=== PATIENT | male | born 1960 | race Two or more races ===

== ENCOUNTER 2024-08-24 19:52 | Inpatient (IN) | payer MEDICARE, OTHER ==
[~2024-08-24] VITALS: Ht 182.9 cm; Wt 101.6 kg
[~2024-08-24 19:52] MED LIST: ATEN50TA PO; ATOR20TA PO; BENA40TA67 PO; CHOL200026 PO; DIVA500T2 PO; FENO145T21 PO; GABA-534 PO; GLYB1TAB3 PO; INSU3INS6 SUBCUT; LORA1TAB PO; SILD100T PO; SITA100T PO; TAMS-12 PO; TRIA1TAB5 PO
[2024-08-24 20:55] LABS: BASOPHILS # (AUTO) 0.1 K/uL (0.0-0.2); BASOPHILS % (AUTO) 1.2 % (0.0-2.0); EOSINOPHILS # (AUTO) 0.1 K/uL (0.0-0.7); EOSINOPHILS % (AUTO) 1.3 % (0.0-6.0); HEMATOCRIT 32 % (39-51); HEMOGLOBIN 9.9 g/dL (13.5-17.5); LYMPHOCYTES # (AUTO) 2.3 K/uL (0.8-4.8); LYMPHOCYTES % (AUTO) 27.6 % (20.0-44.0); MEAN CORPUSCULAR HEMOGLOBIN 23 PG (26.0-33.0); MEAN CORPUSCULAR HGB CONC 31 g/dl (31.0-36.0); MEAN CORPUSCULAR VOLUME 75 fL (80-96); MONOCYTES # (AUTO) 0.8 K/uL (0.1-1.30); MONOCYTES % (AUTO) 9.8 % (2.0-12.0); NEUTROPHILS # (AUTO) 4.9 K/uL (1.8-8.9); NEUTROPHILS % (AUTO) 60.1 % (43.0-81.0); PLATELET COUNT (AUTO) 241 K/uL (150-450); RED BLOOD CELL COUNT(AUTO) 4.27 MIL/uL (4.5-6.0); RED CELL DISTRIBUTION WIDTH 24.2 % (11.5-15.0); WHITE BLOOD COUNT (AUTO) 8.2 K/uL (4.3-11.0)
[2024-08-24 21:14] LABS: LACTIC ACID 0.9 mmol/L (0.4-2.0)
[2024-08-24 21:15] LABS: BILIRUBIN,DIRECT 0.1 mg/dL (0.0-0.2); BILIRUBIN,TOTAL 0.2 mg/dL (0.2-1.0); CALCIUM, SERUM 8.2 mg/dL (8.5-10.1); CREATININE 1.5 mg/dL (0.6-1.3); POTASSIUM 4.4 mmol/L (3.5-5.1); TOTAL PROTEIN, SERUM 6.7 g/dL (6.4-8.2)
[2024-08-24 21:17] LABS: ALBUMIN 1.1 g/dL (3.4-5.0)
[2024-08-24 22:21] LABS: APPEARANCE,URINE CLEAR (CLEAR); BILIRUBIN,URINE 1+ (NEGATIVE); BLOOD, URINE 3+ Ery/uL (NEGATIVE); COLOR,URINE YELLOW (YELLOW); KETONES,URINE NEGATIVE (NEGATIVE); LEUKOCYTE ESTERASE ,URINE NEGATIVE (NEGATIVE); NITRITE, URINE NEGATIVE (NEGATIVE); PROTEIN,URINE 2+ mg/dl (NEGATIVE); UGLUCOSE TRACE mg/dL (NEGATIVE); UROBILINOGEN,URINE 0.2 EU/dL (0.2)
[2024-08-24 22:36] LABS: ADD URINE CULTURE NO; BACTERIA,URINE Few /HPF (None Seen); SQUAMOUS EPITHELIAL CELL,UR Few /HPF (None Seen)
[2024-08-24 22:37] LABS: WBC,URINE 0-3 /HPF (0-3)
[2024-08-24 22:54] LABS: ABG BASE EXCESS -0.3 mmol/L (-2.0-3.0); ABG OXYGEN SATURATION 93.7 % (94.0-98.0); ABG PCO2 62.3 mmHg (35.0-48.0); ABG PH 7.263 (7.350-7.450); ABG PO2 76.8 mmHg (83.0-108.0); ABG TOTAL HEMOGLOBIN 10.4 G/dL (13.5-17.5); COHb 0.3 % (0.5-1.5); MetHb 0.4 % (0.0-1.5); SITE, ABG RIGHT RADIAL
[2024-08-24] MEDS ORDERED: FUROSEMIDE 20 MG/2 ML VIAL ONE (23:22)
[2024-08-24] MEDS ORDERED: VANCOMYCIN 1 GM /D5W 250 ML PB IV ONE (23:22)
[2024-08-24] MEDS ORDERED: PIPERACI/TAZO 3.375GM/D5W 50ML PB IV ONE (23:22)
[2024-08-24] MEDS: PIPERACILLIN /TAZOBACTAM 3.375 G in IV D5W 50 ML IV ONE (23:23)
[2024-08-24] MEDS: FUROSEMIDE 20 MG/2 ML VIAL IV ONE (23:23)
[2024-08-24] MEDS ORDERED: MAGNESIUM HYDROXIDE 30 ML UDC PO PRN (23:30)
[2024-08-24] MEDS ORDERED: MAG HYDROX/AL HYDROX/SIMETH 30 ML UDC PO PRN (23:30)
[2024-08-24] MEDS ORDERED: ONDANSETRON HCL/PF 4 MG/2 ML VIAL IVP PRN (23:30)
[2024-08-25] VITALS (23 sets, daily range): BP systolic 90–122; BP diastolic 55–65; TEMP 98.2; O2SAT 96–100
[2024-08-25] MEDS ORDERED: DEXTROSE 50%-WATER 50 ML DISP.SYRIN IV PRN
[2024-08-25] MEDS: VANCOMYCIN 1 GM in IV D5W 250 ML IV ONE (00:01)
[2024-08-25] MEDS: BLOOD SUGAR DIAGNOSTIC 1 EACH STRIP IN SCH (00:06)
[2024-08-25] MEDS: INSULIN REGULAR, HUMAN 100 UNIT/ML 3 ML VIAL SQ PRN (00:08)
[2024-08-25] MEDS ORDERED: INSULIN REGULAR, HUMAN 100 UNIT/ML 10 ML VIAL ONE (00:09)
[2024-08-25 00:19] LABS: IRON, SERUM 37 ug/dl (50-175); TOTAL IRON BINDING CAPACITY 132 ug/dl (250-450)
[2024-08-25 00:30] LABS: FERRITIN 641 ng/mL (8-388)
[2024-08-25 01:50] LABS: ABG BASE EXCESS -1.6 mmol/L (-2.0-3.0); ABG OXYGEN SATURATION 93.2 % (94.0-98.0); ABG PCO2 48.5 mmHg (35.0-48.0); ABG PH 7.324 (7.350-7.450); ABG PO2 69.7 mmHg (83.0-108.0); COHb 0.3 % (0.5-1.5); MetHb 0.4 % (0.0-1.5); O2Hb 92.5 % (94.0-97.0); SITE, ABG RIGHT RADIAL
[2024-08-25] MEDS ORDERED: CEFEPIME 1 GM VIAL ONE (06:22)
[2024-08-25] MEDS: CEFEPIME 1 GM in IV D5W 50 ML IV SCH (06:23)
[2024-08-25] MEDS: ATENOLOL 50 MG TABLET PO SCH (09:00)
[2024-08-25 09:10] LABS: ABG BASE EXCESS 0.6 mmol/L (-2.0-3.0); ABG OXYGEN SATURATION 95.8 % (94.0-98.0); ABG PCO2 53.3 mmHg (35.0-48.0); ABG PH 7.325 (7.350-7.450); ABG PO2 83.8 mmHg (83.0-108.0); ABG TOTAL HEMOGLOBIN 10.2 G/dL (13.5-17.5); COHb 0.3 % (0.5-1.5); MetHb 0.1 % (0.0-1.5); O2Hb 95.4 % (94.0-97.0); SITE, ABG RIGHT RADIAL
[2024-08-25] MEDS: PANTOPRAZOLE 40 MG VIAL IV SCH (09:11)
[2024-08-25] MEDS: BENAZEPRIL HCL 20 MG TABLET PO SCH (09:12)
[2024-08-25] MEDS: GABAPENTIN 300 MG CAPSULE PO SCH (09:12)
[2024-08-25] MEDS: TAMSULOSIN 0.4 MG CAP.SR.24H PO SCH (09:13)
[2024-08-25] MEDS: FENOFIBRATE NANOCRYS (145 MG) 145 MG TABLET PO SCH (09:13)
[2024-08-25] MEDS: DIVALPROEX SODIUM 500 MG TABLET.DR PO SCH (09:13)
[2024-08-25] MEDS: ATORVASTATIN 10 MG TABLET PO SCH (09:13)
[2024-08-25] MEDS: LINAGLIPTIN 5 MG TABLET PO SCH (09:13)
[2024-08-25] MEDS: IPRATROPIUM NEB FS 0.5 MG/2.5 ML AMPUL.NEB NEB SCH (10:43)
[2024-08-25] MEDS: ALBUTEROL HALF STRENGTH 1.25 MG/3 ML VIAL.NEB NEB SCH (10:43)
[2024-08-25] MEDS: VANCOMYCIN 1 GM in IV D5W 250ml IV ONE (10:58)
[2024-08-25 12:42] LABS: BASOPHILS # (AUTO) 0.1 K/uL (0.0-0.2); BASOPHILS % (AUTO) 1.3 % (0.0-2.0); EOSINOPHILS # (AUTO) 0.1 K/uL (0.0-0.7); EOSINOPHILS % (AUTO) 1.7 % (0.0-6.0); HEMATOCRIT 32 % (39-51); LYMPHOCYTES # (AUTO) 1.6 K/uL (0.8-4.8); MEAN CORPUSCULAR HEMOGLOBIN 24 PG (26.0-33.0); MEAN CORPUSCULAR HGB CONC 32 g/dl (31.0-36.0); MEAN CORPUSCULAR VOLUME 74 fL (80-96); MONOCYTES # (AUTO) 1.1 K/uL (0.1-1.30); MONOCYTES % (AUTO) 16.8 % (2.0-12.0); NEUTROPHILS # (AUTO) 3.5 K/uL (1.8-8.9); NEUTROPHILS % (AUTO) 55.2 % (43.0-81.0); PLATELET COUNT (AUTO) 150 K/uL (150-450); RED BLOOD CELL COUNT(AUTO) 4.26 MIL/uL (4.5-6.0); RED CELL DISTRIBUTION WIDTH 23.8 % (11.5-15.0); WHITE BLOOD COUNT (AUTO) 6.3 K/uL (4.3-11.0)
[2024-08-25 12:45] LABS: CALCIUM, SERUM 8.1 mg/dL (8.5-10.1); CREATININE 1.3 mg/dL (0.6-1.3); MAGNESIUM 1.7 mg/dL (1.8-2.4); PHOSPHORUS 2.5 mg/dL (2.5-4.9); POTASSIUM 4.2 mmol/L (3.5-5.1)
[2024-08-25 15:48] LABS: BILIRUBIN,TOTAL 0.2 mg/dL (0.2-1.0); CALCIUM, SERUM 7.9 mg/dL (8.5-10.1); CREATININE 1.4 mg/dL (0.6-1.3); MAGNESIUM 1.7 mg/dL (1.8-2.4); PHOSPHORUS 2.6 mg/dL (2.5-4.9); POTASSIUM 4.1 mmol/L (3.5-5.1); TOTAL PROTEIN, SERUM 5.9 g/dL (6.4-8.2)
[2024-08-25] MEDS: VANCOMYCIN 750 MG in IV D5W 250 ML IV SCH (20:21)
[2024-08-26] VITALS (28 sets, daily range): BP systolic 90–116; BP diastolic 46–93; TEMP 97.9–98.6; O2SAT 94–100
[2024-08-26] MEDS ORDERED: TRIAMTERENE 50 MG CAPSULE PO SCH ×5 (09:00)
[2024-08-26] MEDS ORDERED: HYDROCHLOROTHIAZIDE 25 MG TABLET PO SCH (09:00)
[2024-08-26 09:42] LABS: BASOPHILS # (AUTO) 0.1 K/uL (0.0-0.2); BASOPHILS % (AUTO) 1.2 % (0.0-2.0); EOSINOPHILS # (AUTO) 0.1 K/uL (0.0-0.7); HEMATOCRIT 34 % (39-51); HEMOGLOBIN 10.3 g/dL (13.5-17.5); LYMPHOCYTES # (AUTO) 1.5 K/uL (0.8-4.8); LYMPHOCYTES % (AUTO) 26.4 % (20.0-44.0); MEAN CORPUSCULAR HEMOGLOBIN 23 PG (26.0-33.0); MEAN CORPUSCULAR HGB CONC 30 g/dl (31.0-36.0); MEAN CORPUSCULAR VOLUME 75 fL (80-96); MONOCYTES # (AUTO) 0.9 K/uL (0.1-1.30); MONOCYTES % (AUTO) 15.7 % (2.0-12.0); NEUTROPHILS # (AUTO) 3.1 K/uL (1.8-8.9); NEUTROPHILS % (AUTO) 54.7 % (43.0-81.0); PLATELET COUNT (AUTO) 194 K/uL (150-450); RED BLOOD CELL COUNT(AUTO) 4.53 MIL/uL (4.5-6.0); RED CELL DISTRIBUTION WIDTH 24.2 % (11.5-15.0); WHITE BLOOD COUNT (AUTO) 5.6 K/uL (4.3-11.0)
[2024-08-26 09:53] LABS: INR 1.19 (0.91-1.10); PROTHROMBIN TIME 12.5 SECS (9.2-11.1)
[2024-08-26 09:54] LABS: CALCIUM, SERUM 8.1 mg/dL (8.5-10.1); CREATININE 1.5 mg/dL (0.6-1.3); POTASSIUM 4.3 mmol/L (3.5-5.1)
[2024-08-26 11:00] LABS: EOSINOPHILS % (MANUAL) 2 % (0-4); LYMPHOCYTES % (MANUAL) 19 % (16-48); MONOCYTES % (MANUAL) 16 % (0-11.0); NEUTROPHILS % (MANUAL) 63 (42-76)
[2024-08-26] MEDS: IV NS 0.9% 1,000 ML IV SCH (11:24)
[2024-08-26 12:49] LABS: ANISOCYTOSIS 2+; HYPOCHROMASIA 1+; PLATELET ESTIMATE ADEQUATE
[2024-08-26] MEDS: CLOTRIMAZOLE/BETAMETASONE DIPROPIONATE 15 GM TUBE TP SCH (21:06)
[2024-08-26] MEDS: OLANZAPINE 10 MG VIAL IM ONE (23:33)
[2024-08-27] VITALS (12 sets, daily range): BP systolic 99–127; BP diastolic 53–84; TEMP 97.3–98.1; O2SAT 93–99
[2024-08-27 07:48] LABS: BASOPHILS # (AUTO) 0.1 K/uL (0.0-0.2); BASOPHILS % (AUTO) 1.6 % (0.0-2.0); EOSINOPHILS # (AUTO) 0.1 K/uL (0.0-0.7); EOSINOPHILS % (AUTO) 2.3 % (0.0-6.0); HEMATOCRIT 32 % (39-51); HEMOGLOBIN 10.1 g/dL (13.5-17.5); LYMPHOCYTES % (AUTO) 28.2 % (20.0-44.0); MEAN CORPUSCULAR HEMOGLOBIN 23 PG (26.0-33.0); MEAN CORPUSCULAR HGB CONC 31 g/dl (31.0-36.0); MEAN CORPUSCULAR VOLUME 73 fL (80-96); MONOCYTES # (AUTO) 0.5 K/uL (0.1-1.30); MONOCYTES % (AUTO) 15.8 % (2.0-12.0); NEUTROPHILS # (AUTO) 1.8 K/uL (1.8-8.9); NEUTROPHILS % (AUTO) 52.1 % (43.0-81.0); PLATELET COUNT (AUTO) 147 K/uL (150-450); RED BLOOD CELL COUNT(AUTO) 4.42 MIL/uL (4.5-6.0); RED CELL DISTRIBUTION WIDTH 23.9 % (11.5-15.0); WHITE BLOOD COUNT (AUTO) 3.4 K/uL (4.3-11.0)
[2024-08-27 08:04] LABS: CREATININE 1.6 mg/dL (0.6-1.3); POTASSIUM 4.4 mmol/L (3.5-5.1)
[2024-08-27] MEDS: ATENOLOL 25 MG TABLET PO SCH (08:59)
[2024-08-27 09:09] LABS: ABG BASE EXCESS 0.8 mmol/L (-2.0-3.0); ABG OXYGEN SATURATION 92.7 % (94.0-98.0); ABG PCO2 43.4 mmHg (35.0-48.0); ABG PH 7.394 (7.350-7.450); ABG PO2 66.3 mmHg (83.0-108.0); ABG TOTAL HEMOGLOBIN 10.3 G/dL (13.5-17.5); COHb 0.2 % (0.5-1.5); O2Hb 92.5 % (94.0-97.0); SITE, ABG RIGHT RADIAL
[2024-08-27 09:55] LABS: ANISOCYTOSIS 1+; BAND % (MANUAL) 0 % (0.0-5.0); BASOPHILS % (MANUAL) 0 % (0.0-2.0); EOSINOPHILS % (MANUAL) 1 % (0-4); LYMPHOCYTES % (MANUAL) 26 % (16-48); MONOCYTES % (MANUAL) 14 % (0-11.0); NEUTROPHILS % (MANUAL) 59 (42-76); PLATELET ESTIMATE DECREASED
[2024-08-27] MEDS: ACETAMINOPHEN 325 MG TABLET PO PRN (10:35)
[2024-08-27] MEDS ORDERED: DEXTROSE 50%-WATER 50 ML DISP.SYRIN IV PRN (15:00)
[2024-08-27] MEDS: BLOOD SUGAR DIAGNOSTIC 1 EACH STRIP IN SCH (17:30)
[2024-08-27] MEDS: INSULIN REGULAR, HUMAN 100 UNIT/ML 3 ML VIAL SQ PRN (17:32)
[2024-08-27] MEDS: VANCOMYCIN 500 MG in IV D5W 100ml IV SCH (21:06)
[2024-08-28] VITALS (14 sets, daily range): BP systolic 110–136; BP diastolic 59–87; TEMP 96.3–98.2; O2SAT 93–100
[2024-08-28 07:31] LABS: CALCIUM, SERUM 7.9 mg/dL (8.5-10.1); CREATININE 1.5 mg/dL (0.6-1.3)
[2024-08-28] MEDS: PANTOPRAZOLE 40 MG TABLET.DR PO SCH (08:31)
[2024-08-28] MEDS: VANCOMYCIN 750 MG in IV D5W 250 ML IV SCH (21:54)
[2024-08-29] VITALS (14 sets, daily range): BP systolic 125–151; BP diastolic 61–84; TEMP 97.5–98; O2SAT 94–100
[2024-08-29 06:54] LABS: CALCIUM, SERUM 7.8 mg/dL (8.5-10.1); CREATININE 1.6 mg/dL (0.6-1.3); POTASSIUM 3.8 mmol/L (3.5-5.1)
[2024-08-29] MEDS: CLOPIDOGREL BISULFATE 75 MG TABLET PO SCH (14:46)
[2024-08-30] VITALS (12 sets, daily range): BP systolic 145–169; BP diastolic 64–101; TEMP 97.7–98.1; O2SAT 93–100
[2024-08-30 07:12] LABS: CALCIUM, SERUM 8.1 mg/dL (8.5-10.1); CREATININE 1.5 mg/dL (0.6-1.3); POTASSIUM 3.8 mmol/L (3.5-5.1)
[2024-08-30] MEDS ORDERED: VANCOMYCIN 750 MG in IV D5W 250 ML IV SCH (09:00)
[2024-08-31] VITALS (7 sets, daily range): BP systolic 116–159; BP diastolic 56–78; TEMP 97.7–97.9; O2SAT 94–99
[2024-08-31 07:57] LABS: CALCIUM, SERUM 8.1 mg/dL (8.5-10.1); CREATININE 1.4 mg/dL (0.6-1.3)
[2024-08-31] MEDS: VANCOMYCIN 750 MG in IV D5W 250 ML IV SCH (10:50)
[2024-08-31 14:44] LABS: PROTEIN, BODY FLUID 2.9 G/DL
[2024-08-31 15:31] LABS: APPEARANCE,SPUN,BODY FLUID CLEAR (CLEAR); TOTAL VOLUME,BODY FLUID 1000 mL; WBC, BODY FLUID 310 /cu. mm. (0-200)
[2024-08-31 17:41] LABS: POLYNUCLEAR, BODY FLUID 48 % (0-25)
[2024-08-31 17:42] LABS: MONOCYTES,BODY FLUID 2 %
[2024-09-01] VITALS (7 sets, daily range): BP systolic 134–145; BP diastolic 70–72; TEMP 97.9; O2SAT 94–100
[2024-09-01 08:13] LABS: CALCIUM, SERUM 8.1 mg/dL (8.5-10.1); CREATININE 1.4 mg/dL (0.6-1.3); POTASSIUM 4.2 mmol/L (3.5-5.1)
[2024-09-01] MEDS: CLOPIDOGREL BISULFATE 75 MG TABLET PO SCH (09:00)
== END 2024-09-01 19:55 | DRG 177 ==
LOC: ER 20:02 → ICU 08-25 07:27 → TELE-TD 08-26 16:58 → TELE1 08-28 10:23 → MEDSG1 08-29 10:12
PROVIDERS: ATTEND Nurse Practitioner Acute Care
PROC: 5A09357 Assistance with Respiratory Ventilation, Less than 24 Consecutive Hours, Continuous Positive Airway Pressure (ICD-10-PCS; 2024-08-25)
PROC: 5A09357 Assistance with Respiratory Ventilation, Less than 24 Consecutive Hours, Continuous Positive Airway Pressure (ICD-10-PCS; 2024-08-26)
PROC: 0W993ZZ Drainage of Right Pleural Cavity, Percutaneous Approach (ICD-10-PCS; principal; 2024-08-31)
DX: J15.69 Pneumonia due to other Gram-negative bacteria (principal); E43 Unspecified severe protein-calorie malnutrition; G92.8 Other toxic encephalopathy; J96.21 Acute and chronic respiratory failure with hypoxia; J96.22 Acute and chronic respiratory failure with hypercapnia; N17.0 Acute kidney failure with tubular necrosis; J98.11 Atelectasis; J90 Pleural effusion, not elsewhere classified; D68.69 Other thrombophilia; E88.09 Other disorders of plasma-protein metabolism, not elsewhere classified; I12.9 Hypertensive chronic kidney disease with stage 1 through stage 4 chronic kidney disease, or unspecified chronic kidney disease; N18.9 Chronic kidney disease, unspecified; E78.5 Hyperlipidemia, unspecified; F31.9 Bipolar disorder, unspecified; F41.9 Anxiety disorder, unspecified; I25.10 Atherosclerotic heart disease of native coronary artery without angina pectoris; Z87.891 Personal history of nicotine dependence; Z87.01 Personal history of pneumonia (recurrent); Z95.5 Presence of coronary angioplasty implant and graft; Z79.4 Long term (current) use of insulin; Z74.01 Bed confinement status; E83.9 Disorder of mineral metabolism, unspecified; Z79.84 Long term (current) use of oral hypoglycemic drugs; G47.33 Obstructive sleep apnea (adult) (pediatric); D50.9 Iron deficiency anemia, unspecified; E11.22 Type 2 diabetes mellitus with diabetic chronic kidney disease; Z74.09 Other reduced mobility; Z68.30 Body mass index [BMI] 30.0-30.9, adult; L89.152 Pressure ulcer of sacral region, stage 2; L98.8 Other specified disorders of the skin and subcutaneous tissue; L89.46 Pressure-induced deep tissue damage of contiguous site of back, buttock and hip; R91.8 Other nonspecific abnormal finding of lung field; N40.0 Benign prostatic hyperplasia without lower urinary tract symptoms
CPT/HCPCS: 36415; 36600; 70450-TC; 71045-TC; 71250-TC; 76770-TC; 80048-TC; 80053-TC; 80076-TC; 80202-TC; 81001; 82728-TC; 82803-TC; 82962-TC; 83540-TC; 83605-TC; 83615-TC; 83735-TC; 83880; 84100-TC; 85025-TC; 85610-TC; 87040-TC; 87081-TC; 87102-TC; 89051-TC; 92526; 92611-TC; 93307-TC; 93970-TC; 94761-TC; 94762-TC; 94799-TC; 97110-TC; 97112-TC; 97116-TC; 97530-TC; A4223; G0378; J0692; J1815; J1940; J2470; J2543; J3370; J3371; J3490; J7030; J7050; J7060